=== PATIENT | female | born 1995 | race Caucasian/White ===

== ENCOUNTER 2016-10-03 23:47 | Emergency (ER) | payer BC ==
[~2016-10-03] VITALS: Ht 160 cm; Wt 59.1 kg
[2016-10-03] MEDS ORDERED: NEXPLANON68 MG ID (23:54)
[2016-10-03 23:56] VITALS: BP 115/84; TEMP 98.6
[2016-10-04 01:30] VITALS: PULSE 87
== END 2016-10-04 01:30 | disposition home or self-care (01) ==
LOC: COL.ER 23:47
DX: S81.011A Laceration without foreign body, right knee, initial encounter (principal); F17.210 Nicotine dependence, cigarettes, uncomplicated; W01.0XXA Fall on same level from slipping, tripping and stumbling without subsequent striking against object, initial encounter; Y92.828 Other wilderness area as the place of occurrence of the external cause; Y93.02 Activity, running